=== PATIENT | male | born 1955 | race Caucasian/White ===

== ENCOUNTER 2023-09-22 18:17 | Emergency (ER) | payer BC ==
[~2023-09-22] VITALS: Ht 170.2 cm; Wt 72.6 kg
[2023-09-22] MEDS ORDERED: CHLO25TA2 PO (18:41)
[2023-09-22] MEDS ORDERED: [UNRECOGNIZED DRUG - CODE] PO (18:41)
[2023-09-22] MEDS ORDERED: NEBI5TAB3 PO (18:41)
[2023-09-22] MEDS ORDERED: OMEP-268 PO (18:41)
[2023-09-22] MEDS ORDERED: OLME5TAB29 PO (18:41)
[2023-09-22 18:48] VITALS: BP_SYST 156; PULSE 86; RESP 18; TEMP 98.4; O2SAT 98
[2023-09-22] MEDS ORDERED: ALPRAZolam 0.25 MG TABLET PO ONE (19:30)
[2023-09-22 19:35] LABS: BASOPHILS # (AUTO) 0.1 K/uL (0.0-0.2); BASOPHILS % (AUTO) 0.5 % (0.0-2.0); EOSINOPHILS # (AUTO) 0.1 K/uL (0.0-0.4); EOSINOPHILS % (AUTO) 0.9 % (0.0-4.0); HEMATOCRIT 45.3 % (36-54); HEMOGLOBIN 15.3 g/dL (14.0-18.0); LYMPHOCYTES # (AUTO) 1.8 K/uL (1.0-5.5); LYMPHOCYTES % (AUTO) 18.1 % (20.5-51.5); MEAN CORPUSCULAR HEMOGLOBIN 31 pg (27-31); MEAN CORPUSCULAR HGB CONC 34 % (32-36); MEAN CORPUSCULAR VOLUME 92 fL (79.0-98.0); MONOCYTES # (AUTO) 0.8 K/uL (0.0-1.0); MONOCYTES % (AUTO) 8.3 % (1.7-9.3); NEUTROPHILS # (AUTO) 7.3 K/uL (1.8-7.7); NEUTROPHILS % (AUTO) 72.2 % (40.0-70.0); PLATELET COUNT (AUTO) 195 K/uL (130-430); RED BLOOD CELL COUNT(AUTO) 4.93 MIL/uL (4.2-6.2); RED CELL DISTRIBUTION WIDTH 12.9 % (9.0-15.0); WHITE BLOOD COUNT (AUTO) 10.1 K/uL (4.8-10.8)
[2023-09-22 19:45] LABS: ANION GAP 12 (5-15); CALCIUM 9.9 mg/dL (8.4-11.0); CARBON DIOXIDE 24 mmol/L (23-29); CHLORIDE 99 mmol/L (98-107); CREATININE 1.29 mg/dL (0.55-1.30); GFR AFRICAN AMERICAN 72 mL/min (>90); GLUCOSE 218 mg/dL (74-106); POTASSIUM 3.5 mmol/L (3.5-5.1); SODIUM SERUM 135 mmol/L (136-145); UREA NITROGEN, BLOOD 12 mg/dL (8-21)
[2023-09-22 19:47] LABS: INR 1.1 (0.80-1.20); PROTHROMBIN TIME 11.8 SECS (9.5-12.5)
[2023-09-22 19:51] LABS: GFR NON AFRICAN-AMERICAN 59 mL/min (>90)
[2023-09-22 19:51] LABS: CREATINE KINASE, TOTAL 307 U/L (39-308); SALICYLATE 2 mg/dL (3-30)
[2023-09-22 19:52] LABS: ALANINE AMINOTRANSFERASE 30 U/L (12-78); ALBUMIN 4.4 g/dL (3.4-4.8); ASPARTATE AMINOTRANSFERASE 24 U/L (10-37); TOTAL BILIRUBIN 1.3 mg/dL (0.0-1.0); TOTAL PROTEIN, SERUM 8.2 g/dL (6.4-8.3)
[2023-09-22 19:55] LABS: ACETAMINOPHEN < 1 ug/mL (1-30); ALCOHOL, BLOOD < 3 mg/dL (<10)
[2023-09-22 20:06] LABS: BARBITURATE, URINE NEGATIVE (NEG <=200); BENZODIAZEPINE, URINE NEGATIVE (NEG <=150); CANNABINOID, URINE NEGATIVE (NEG <=50); COCAINE, URINE NEGATIVE (NEG <=150); METHAMPHETAMINES SCREEN,URINE NEGATIVE (NEG <=500); OPIATE, URINE NEGATIVE (NEG <=100); PHENCYCLIDINE SCREEN,URINE NEGATIVE (NEG <=25); UR TRICYCLIC ANTIDEPRESSANTS NEGATIVE (NEG <=300); URINE AMPHETAMINE NEGATIVE (NEG <=500); URINE METHADONE NEGATIVE (NEG <=200); URINE OXYCODONE SCREEN NEGATIVE (NEG <=100); URINE PROPOXYPHENE SCREEN NEGATIVE (NEG <=300)
[2023-09-22] MEDS ORDERED: ALPR0.5T PO (20:40)
[2023-09-22 21:09] VITALS: BP_SYST 120; PULSE 72; RESP 18; TEMP 98.9; O2SAT 96
== END 2023-09-22 20:59 | disposition home or self-care (01) ==
LOC: SED 18:17
DX: F41.9 Anxiety disorder, unspecified (principal); G47.00 Insomnia, unspecified; Z91.040 Latex allergy status; Z79.899 Other long term (current) drug therapy
CPT/HCPCS: 99285; 70450; 71045; 80307; 80053; 82550; 85025; 85610; 85730; 84484; 36415; 93005; 76376; G0480; G0481; G0482

== ENCOUNTER 2023-09-28 14:05 | Emergency (ER) | payer BC ==
[~2023-09-28] VITALS: Ht 170.2 cm; Wt 72.6 kg
[~2023-09-28 14:05] MED LIST: ALPR0.5T PO; CHLO25TA2 PO; NEBI5TAB3 PO; OLME5TAB29 PO; OMEP-268 PO; [UNRECOGNIZED DRUG - CODE] PO
[2023-09-28 14:23] VITALS: BP_SYST 106; PULSE 76; RESP 19; TEMP 97; O2SAT 99
[2023-09-28 15:05] LABS: BASOPHILS # (AUTO) 0.1 K/uL (0.0-0.2); BASOPHILS % (AUTO) 0.7 % (0.0-2.0); EOSINOPHILS # (AUTO) 0.1 K/uL (0.0-0.4); EOSINOPHILS % (AUTO) 0.8 % (0.0-4.0); HEMATOCRIT 43.8 % (36-54); HEMOGLOBIN 15.3 g/dL (14.0-18.0); LYMPHOCYTES # (AUTO) 2.2 K/uL (1.0-5.5); LYMPHOCYTES % (AUTO) 26.7 % (20.5-51.5); MEAN CORPUSCULAR HEMOGLOBIN 31 pg (27-31); MEAN CORPUSCULAR HGB CONC 35 % (32-36); MEAN CORPUSCULAR VOLUME 90 fL (79.0-98.0); MONOCYTES # (AUTO) 0.8 K/uL (0.0-1.0); MONOCYTES % (AUTO) 9.2 % (1.7-9.3); NEUTROPHILS # (AUTO) 5.2 K/uL (1.8-7.7); NEUTROPHILS % (AUTO) 62.6 % (40.0-70.0); PLATELET COUNT (AUTO) 202 K/uL (130-430); RED BLOOD CELL COUNT(AUTO) 4.87 MIL/uL (4.2-6.2); RED CELL DISTRIBUTION WIDTH 12.7 % (9.0-15.0); WHITE BLOOD COUNT (AUTO) 8.3 K/uL (4.8-10.8)
[2023-09-28 15:19] LABS: ANION GAP 11 (5-15); CALCIUM 9.6 mg/dL (8.4-11.0); CARBON DIOXIDE 26 mmol/L (23-29); CHLORIDE 99 mmol/L (98-107); CREATININE 1.57 mg/dL (0.55-1.30); GFR AFRICAN AMERICAN 57 mL/min (>90); GLUCOSE 153 mg/dL (74-106); POTASSIUM 3.7 mmol/L (3.5-5.1); SODIUM SERUM 136 mmol/L (136-145); UREA NITROGEN, BLOOD 16 mg/dL (8-21)
[2023-09-28 15:21] LABS: GFR NON AFRICAN-AMERICAN 47 mL/min (>90)
[2023-09-28 15:24] LABS: ALANINE AMINOTRANSFERASE 28 U/L (12-78); ALBUMIN 4.3 g/dL (3.4-4.8); ASPARTATE AMINOTRANSFERASE 21 U/L (10-37); CREATINE KINASE, TOTAL 173 U/L (39-308); TOTAL PROTEIN, SERUM 7.7 g/dL (6.4-8.3)
[2023-09-28 15:28] LABS: SALICYLATE < 1 mg/dL (3-30)
[2023-09-28 16:02] LABS: ACETAMINOPHEN < 1 ug/mL (1-30); ALCOHOL, BLOOD < 3 mg/dL (<10)
[2023-09-28] MEDS ORDERED: ALPR1TAB2 PO (17:05)
[2023-09-28 17:13] VITALS: BP_SYST 118; PULSE 70; RESP 16; TEMP 98.1; O2SAT 97
== END 2023-09-28 17:14 | disposition home or self-care (01) ==
LOC: SED 14:05
DX: F41.9 Anxiety disorder, unspecified (principal); G47.00 Insomnia, unspecified; Z91.040 Latex allergy status; Z79.899 Other long term (current) drug therapy; Z20.822 Contact with and (suspected) exposure to COVID-19
CPT/HCPCS: 99285; 71045; 87426; 80053; 82550; 85025; 36415; 93005; G0482; G0480; G0481